=== PATIENT | female | born 1985 | race Caucasian/White ===

== ENCOUNTER 2018-09-28 20:34 | Emergency (ER) | payer OTHER ==
[~2018-09-28] VITALS: Ht 157.5 cm; Wt 97.5 kg
[2018-09-28 21:07] VITALS: BP 161/98; Ht 157.5 cm; Wt 97.5 kg
== END 2018-09-28 21:29 | disposition left against medical advice (07) ==
LOC: ED 20:34
DX: Z53.21 Procedure and treatment not carried out due to patient leaving prior to being seen by health care provider (principal)